=== PATIENT | male | born 1975 | race Caucasian/White ===

== ENCOUNTER 2016-11-07 09:36 | Emergency (ER) | payer MEDICARE | END 2016-11-07 13:06 | disposition home or self-care (01) | LOC: ER 09:36 | DX: N13.2 Hydronephrosis with renal and ureteral calculous obstruction (principal); I10 Essential (primary) hypertension; Z88.5 Allergy status to narcotic agent | CPT/HCPCS: 36415; 96374; 96375; 96376; J1885 ==